=== PATIENT | male | born 1990 | race African-American/Black ===

== ENCOUNTER 2019-02-10 15:04 | Emergency (ER) | payer SELFPAY ==
[2019-02-10 15:09] VITALS: BP 129/67; PULSE 90; TEMP 97.9; BMI 23.0
--- NOTE | 2019-02-10 15:10 | PDOC ---
Rapid Medical Evaluation Time Seen by Provider: 02/10/19 15:05 Medical Evaluation: Allergies Allergy/AdvReac Type Severity Reaction Status Date / Time No Known Drug Allergies Allergy Verified 04/10/14 16:45 SHRIMP Allergy Difficulty Uncoded 04/10/14 14:24 Breathing 02/10/19 15:07 Pt reports groin pain/suprapubic pain for 2 days. Denies testicular pain. States he has some pressure when he pees. Exam: Deferred to provider; NAD Orders: urine Pt to proceed to the ER for evaluation Discharge Disposition - Diagnosis Groin pain Qualifiers: Laterality: right Qualified Code(s): R10.31 - Right lower quadrant pain - Referrals - Patient Instructions - Post Discharge Activity
[2019-02-10] MEDS ORDERED: AZITHROMYCIN 250 MG TABLET PO ONE (15:13)
--- NOTE | 2019-02-10 15:18 | PDOC ---
History of Present Illness - General Chief Complaint: Pain Stated Complaint: PAIN ON GROIN Time Seen by Provider: 02/10/19 15:05 History Source: Patient - History of Present Illness Timing/Duration: reports: constant Past History - Past Medical History Allergies/Adverse Reactions: Allergies Allergy/AdvReac Type Severity Reaction Status Date / Time No Known Drug Allergies Allergy Verified 02/10/19 15:09 Home Medications: Ambulatory Orders Albuterol Sulfate Inhaler - [Ventolin HFA Inhaler -] 1 - 2 inh PO Q4H PRN #1 inhaler 11/01/13 Anemia: No Asthma: Yes (on albuterol inhaher) Cancer: No Cardiac Disorders: No CVA: No COPD: No CHF: No Dementia: No Diabetes: No GI Disorders: No Disorders: No HTN: No Hypercholesterolemia: No Kidney Stones: No Liver Disease: No Seizures: No Thyroid Disease: No - Reproductive History Testicular Surgery: No - Immunization History Immunization Up to Date: Yes - Psycho Social/Smoking Cessation Hx Smoking History: Never smoked Have you smoked in the past 12 months: Yes Number of Cigarettes Smoked Daily: 5 Cigars Per Day: 0 Information on smoking cessation initiated: No 'Breaking Loose' booklet given: 04/10/14 Hx Alcohol Use: No Drug/Substance Use Hx: No Substance Use Type: Alcohol Hx Substance Use Treatment: No Abd/GI Specific PMHX - Complaint Specific PMHX Hepatitis: No Pancreatitis: No Review of Systems - Review of Systems Constitutional: No: Chills, Fever ABD/GI: No: Nausea, Vomiting, Abdominal cramping : Yes: Dysuria, Discharge. No: Flank Pain, Hematuria, Testicular Mass, Testicular Swelling, Lesions, Testicular Pain *Physical Exam - Vital Signs Last Vital Signs Temp Pulse Resp BP Pulse Ox 97.9 F 90 19 129/67 99 02/10/19 15:06 02/10/19 15:06 02/10/19 15:06 02/10/19 15:06 02/10/19 15:06 - Physical Exam General Appearance: Yes: Appropriately Dressed. No: Apparent Distress HEENT: positive: Normal Voice Neck: positive: Supple Respiratory/Chest: negative: Respiratory Distress Male Genitalia: positive: other (refused exam) Integumentary: positive: Dry, Warm Neurologic: positive: Fully Oriented, Alert, Normal Mood/Affect Medical Decision Making - Medical Decision Making 02/10/19 15:13 28-year-old male, no significant history, here with clear penile discharge and possible dysuria for 2 days. Reports vague pain to genitalia but unsure location and states pain has since resolved. No testicular pain or swelling at this time and no genital lesions. Patient had unprotected sexual intercourse with a new female partner 1 week ago see exam Possible STD Will tx empirically Refused genital exam UA w/ 2+ LE and 2.6 vangie, ucx sent -STD cxs sent, pt to f/u with results 02/10/19 15:56 While waiting for discharge papers, patient appeared to have eloped. Patient called multiple times with no answer Discharge - Discharge Information Problems reviewed: Yes Clinical Impression/Diagnosis: Penile discharge Groin pain Qualifiers: Laterality: right Qualified Code(s): R10.31 - Right lower quadrant pain Condition: Good Disposition: HOME - Follow up/Referral - Patient Discharge Instructions Patient Printed Discharge Instructions: DI for Urethritis Additional Instructions: You were treated empirically for possible sexually transmitted disease. The medications cover potential gonorrhea and chlamydia If symptoms worsen, return to the ED, otherwise follow-up with the results which should be back in 3 to 5 days. If any test is positive we will call you, otherwise you can contact us at [phone] - Post Discharge Activity
[2019-02-10] MEDS ORDERED: AZITHROMYCIN 500 MG TABLET ONE (15:26)
[2019-02-10 16:16] LABS: EPI CELLS 0.6 /HPF (0-5/HPF); HYALINE CASTS 15 /lpf (0-8); URINE APPEARANCE CLEAR; URINE BACTERIA 2.6 /hpf (NEGATIVE); URINE BILIRUBIN NEGATIVE (NEGATIVE); URINE COLOR YELLOW; URINE GLUCOSE (UA) NEGATIVE (NEGATIVE); URINE KETONE TRACE (NEGATIVE); URINE LEUK ESTERASE 2+ (NEGATIVE); URINE NITRITE NEGATIVE (NEGATIVE); URINE PROTEIN NEGATIVE (NEGATIVE); URINE RBC 1 /hpf (0-4); URINE UROBILINOGEN 0.2 mg/dL (0.2-1.0); URINE WBC 23 /hpf (0-5)
== END 2019-02-10 16:00 | disposition home or self-care (01) ==
LOC: JERFT 15:04
DX: R10.31 Right lower quadrant pain (principal)
CPT/HCPCS: 36415; 81003; 87086; 87491; 87591; 99282-25

== ENCOUNTER 2022-08-18 11:17 | Emergency (ER) | payer OTHER ==
[2022-08-18 11:25] VITALS: BP 105/68; PULSE 76; RESP 18; TEMP 98.4; BMI 23.0
[2022-08-18] MEDS ORDERED: KETOROLAC TROMETHAMINE 30 MG/1 ML VIAL IM ONE (12:18)
[2022-08-18] MEDS ORDERED: LIDOCAINE 5% TOPICAL PATCH TP ONE (12:18)
[2022-08-18] MEDS ORDERED: ACETAMINOPHEN 500 MG TABLET (FP) PO ONE (12:18)
[2022-08-18] MEDS ORDERED: ACETAMINOPHEN 500 MG TABLET (FP) ONE (12:35)
[2022-08-18] MEDS ORDERED: LIDOCAINE 5% TOPICAL PATCH ONE (12:35)
[2022-08-18] MEDS ORDERED: KETOROLAC TROMETHAMINE 30 MG/1 ML VIAL ONE (12:35)
[2022-08-18] MEDS ORDERED: LIDOCAINE PATCH REMOVAL MC SCH (22:00)
== END 2022-08-18 13:15 | disposition home or self-care (01) ==
LOC: JERFT 11:17
PROC: 3E0233Z Introduction of Anti-inflammatory into Muscle, Percutaneous Approach (ICD-10-PCS; principal; 2022-08-18)
DX: M54.9 Dorsalgia, unspecified (principal)
CPT/HCPCS: 99284-25

== ENCOUNTER 2023-10-14 23:30 | Emergency (ER) | payer BC, OTHER ==
[2023-10-14 23:40] VITALS: BP 119/73; PULSE 79; RESP 20; TEMP 98.5; BMI 23.0
[2023-10-15 00:34] LABS: EPI CELLS 28 /uL (0-25.1); HYALINE CASTS 1 /uL (0-3.1); URINE APPEARANCE CLEAR; URINE BACTERIA 40 /uL (0-1359); URINE BILIRUBIN NEGATIVE (NEGATIVE); URINE COLOR YELLOW; URINE GLUCOSE (UA) NEGATIVE (NEGATIVE); URINE KETONE NEGATIVE (NEGATIVE); URINE LEUK ESTERASE 2+ (NEGATIVE); URINE NITRITE NEGATIVE (NEGATIVE); URINE PROTEIN NEGATIVE (NEGATIVE); URINE RBC 43 /uL (0-23.9); URINE UROBILINOGEN 0.2 mg/dL (0.2-1.0); URINE WBC 464 /uL (0-25.8)
[2023-10-15] MEDS ORDERED: DOXYCYCLINE HYCLATE 100 MG CAPSULE PO ONE (01:34)
[2023-10-15] MEDS ORDERED: cefTRIAXone SODIUM 1 GM VIAL ONE (01:35)
[2023-10-15] MEDS: DOXYCYCLINE HYCLATE 100 MG CAPSULE PO ONE (01:48)
[2023-10-15 02:10] LABS: HIV INTERPRETATION NEGATIVE (NEGATIVE)
== END 2023-10-15 02:15 | disposition home or self-care (01) ==
LOC: JER 23:30
DX: R30.0 Dysuria (principal); Z11.3 Encounter for screening for infections with a predominantly sexual mode of transmission; R36.9 Urethral discharge, unspecified
CPT/HCPCS: 36415; 81003; 87086; 87389; 99284-25